=== PATIENT | male | born 1950 | race Caucasian/White ===

== ENCOUNTER 2022-08-29 11:59 | Outpatient (CLI) | payer OTHER, MEDICARE | END 2022-08-29 12:00 | disposition home or self-care (01) | LOC: BICRAD 11:59 | PROVIDERS: ATTEND Physician Assistant | DX: R05.9 Cough, unspecified (principal) | CPT/HCPCS: 71046 ==

== ENCOUNTER 2024-01-03 09:50 | Outpatient (CLI) | payer MEDICARE | END 2024-01-03 09:51 | disposition home or self-care (01) | LOC: BICCT 09:50 | PROVIDERS: ATTEND Internal Medicine | DX: J44.9 Chronic obstructive pulmonary disease, unspecified (principal); J43.9 Emphysema, unspecified; J92.9 Pleural plaque without asbestos | CPT/HCPCS: 71250 ==